=== PATIENT | female | born 1975 | race African-American/Black ===

== ENCOUNTER 2016-12-08 17:05 | Emergency (ER) | payer BC, OTHER ==
[2016-12-08 17:37] VITALS: BP 120/68; PULSE 75; TEMP 98; BMI 26.3
--- NOTE | 2016-12-08 18:38 | PDOC ---
History of Present Illness - General Chief Complaint: Injury Stated Complaint: LIP INJURY Time Seen by Provider: 12/08/16 18:24 History Source: Patient Exam Limitations: No Limitations - History of Present Illness Initial Comments: 12/08/16 18:33 41 yr female with upper lip injury this am. pt states she walked into door and split her upper lip. Occurred: reports: this morning Severity: reports: mild Pain Location: reports: face (upper lip) Method of Injury: Yes: direct blow (walked into door) Past History - Past Medical History Allergies/Adverse Reactions: Allergies Allergy/AdvReac Type Severity Reaction Status Date / Time SEAFOOD Allergy Uncoded 12/08/16 17:33 Home Medications: Ambulatory Orders No Home Medications 0 dose .ROUTE UTDICT 08/06/13 GI Disorders: Yes (GERD) - Surgical History Abdominal Surgery: Yes (UMBILICAL HERNIA) - Reproductive History (#): 4 Para: 2 Therapeutic (s) & number: No Spontaneous : 1 - Immunization History Immunization Up to Date: Yes - Psycho/Social/Smoking Cessation Hx Anxiety: No Suicidal Ideation: No Smoking History: Never smoked Number of Cigarettes Smoked Daily: 0 Hx Alcohol Use: No *Physical Exam - Vital Signs Last Vital Signs Temp Pulse Resp BP Pulse Ox 98 F 75 19 120/68 100 12/08/16 17:34 12/08/16 17:34 12/08/16 17:34 12/08/16 17:34 12/08/16 17:34 - Physical Exam General Appearance: Yes: Nourished, Appropriately Dressed HEENT: positive: EOMI, EMMANUEL, TMs Normal, Pharynx Normal, Other (upper lip inside with 0.5cm linear laceration edges healed, no bleeding no drainage ) Neck: positive: Supple. negative: Tender Respiratory/Chest: positive: Lungs Clear, Normal Breath Sounds Cardiovascular: positive: Regular Rhythm, Regular Rate Musculoskeletal: positive: Normal Inspection Extremity: positive: Normal Capillary Refill, Normal Inspection, Normal Range of Motion Integumentary: positive: Normal Color, Dry, Warm Neurologic: positive: Fully Oriented, Alert, Normal Mood/Affect, Normal Response , Motor Strength 5/5 Medical Decision Making - Medical Decision Making 12/08/16 18:40 cc: lac to inside upper lip at 8am no dental trauma teeth intact pt went to work today and used salt water gargles and ice to the area the wound has healed, the edges have approximated, no bleeding or redness or drainage I have instructed pt to clean with peroxide for 3 days soft foods for the next 24hrs dental follow up as needed pt agrees with plan has no medical history or allergies. *DC/Admit/Observation/Transfer Diagnosis at time of Disposition: Lip laceration Qualifiers: Encounter type: initial encounter Qualified Code(s): S01.511A - Laceration without foreign body of lip, initial encounter - Discharge Dispostion Disposition: HOME Condition at time of disposition: Good - Patient Instructions Additional Instructions: follow with your dentist as needed gargle with peroxide and warm water 4-5 times a day for 3 days soft foods avoid anything spicy or crunchy for the next 24hrs if any redness, drainage or fever return to ER
== END 2016-12-08 18:40 | disposition home or self-care (01) ==
LOC: JERFT 17:05
DX: S01.511A Laceration without foreign body of lip, initial encounter (principal); W22.8XXA Striking against or struck by other objects, initial encounter; Y93.01 Activity, walking, marching and hiking; Y92.89 Other specified places as the place of occurrence of the external cause; Y99.8 Other external cause status
CPT/HCPCS: 99281-25